=== PATIENT | female | born 1995 ===

== ENCOUNTER 2021-09-09 20:45 | Emergency (ER) | payer SELFPAY ==
[~2021-09-09] VITALS: Ht 170.2 cm; Wt 86.2 kg
== END 2021-09-09 21:37 | disposition home or self-care (01) ==
LOC: ER 20:45
DX: R06.02 Shortness of breath (principal); Z91.040 Latex allergy status; Z87.891 Personal history of nicotine dependence
CPT/HCPCS: 99282